=== PATIENT | female | born 1945 | race Caucasian/White ===

== ENCOUNTER 2017-05-12 07:27 | Inpatient (IN) | payer MEDICARE, OTHER ==
[2017-05-09 14:44] LABS: BLOOD UREA NITROGEN 14 mg/dL (7-18)
[2017-05-09 14:47] LABS: ASPARTATE AMINO TRANSFERASE 19 U/L (15-37)
[~2017-05-12] VITALS: Ht 162.6 cm; Wt 73.4 kg
[~2017-05-12 07:27] MED LIST: [UNRECOGNIZED DRUG - OTHER] PO
[2017-05-12 09:01] VITALS: BP 134/77
[2017-05-12] MEDS ORDERED: LACTATED RINGERS 1,000 ML IV SCH (09:31)
[2017-05-12] MEDS ORDERED: MIDAZOLAM 1 MG/ML, 2ML ONE (10:17)
[2017-05-12] MEDS ORDERED: FENTANYL PF 250 MCG/5ML ONE (10:17)
[2017-05-12] MEDS ORDERED: METOCLOPRAMIDE 5 MG/ML, 2ML IV PRN (11:30)
[2017-05-12] MEDS ORDERED: PROMETHAZINE 25 MG/ML, 1ML IV PRN (11:30)
[2017-05-12] MEDS ORDERED: HYDROmorphone 1 MG/ML, 1ML IV PRN (11:30)
[2017-05-12] MEDS ORDERED: OXYcodone 5 MG/5 ML ORAL.SOL UDC PO PRN (11:30)
[2017-05-12] MEDS ORDERED: ONDANSETRON 2MG/ML, 2ML IVPush PRN (11:30)
[2017-05-12] MEDS ORDERED: LABETALOL 5MG/ML, 20ML IV PRN (11:30)
[2017-05-12] MEDS ORDERED: MEPERIDINE/PF 25MG/0.5ML IVPush PRN (11:30)
[2017-05-12] MEDS ORDERED: hydrALAzine 20 MG/ML, 1ML IV PRN (11:30)
[2017-05-12] MEDS ORDERED: GLYCOPYRROLATE 0.2MG/1ML ONE (11:51)
[2017-05-12] MEDS ORDERED: ROCURONIUM 10 MG/ML ONE (11:51)
[2017-05-12] MEDS ORDERED: CEFOTETAN 2 GM ONE (11:51)
[2017-05-12] MEDS ORDERED: ONDANSETRON 2MG/ML, 2ML ONE (11:51)
[2017-05-12] MEDS ORDERED: PROPOFOL 10 MG/ML, 20ML ONE (11:51)
[2017-05-12] MEDS ORDERED: DEXAMETHASONE 4 MG/ML, 1ML ONE (11:51)
[2017-05-12] MEDS ORDERED: NEOSTIGMINE 1 MG/ML, 10ML ONE (11:51)
[2017-05-12] MEDS ORDERED: FENTANYL PF 100 MCG/2ML ONE (14:24)
[2017-05-12] MEDS ORDERED: ACETAMINOPHEN 650 MG/20.3 ML UDC ONE (14:24)
[2017-05-12] MEDS ORDERED: OXYcodone 5 MG/5 ML ORAL.SOL UDC ONE ×2 (14:25→21:26)
[2017-05-12] MEDS ORDERED: ACETAMINOPHEN 325 MG TABLET ONE (14:25)
[2017-05-12] MEDS: FENTANYL PF 100 MCG/2ML IV PRN ×2 (14:45→15:00)
[2017-05-12] MEDS ORDERED: morphine SULFATE 10 MG/ML, 1ML IV PRN (16:00)
[2017-05-12] MEDS ORDERED: ACETAMINOPHEN 650 MG SUPP PR PRN (16:00)
[2017-05-12] MEDS ORDERED: ONDANSETRON 2MG/ML, 2ML IV PRN (16:00)
[2017-05-12] MEDS ORDERED: ALBUMIN HUMAN 5% 500 ML IV SCH (16:00)
[2017-05-12] MEDS ORDERED: ACETAMINOPHEN 325 MG TABLET PO PRN (16:00)
[2017-05-12 16:10] VITALS: BP 122/60
[2017-05-12] MEDS: ALBUMIN HUMAN 5% 500 ML IV SCH (17:20)
[2017-05-12 19:09] VITALS: BP 138/73
[2017-05-12] MEDS: POTASSIUM CHLORIDE 20 MEQ in D5%-0.45% NACL 1,000 ML IV SCH ×2 (19:38→23:56)
[2017-05-12] MEDS ORDERED: HYDROmorphone 1 MG/ML, 1ML ONE (21:26)
[2017-05-13 01:18] VITALS: BP 126/65
[2017-05-13] MEDS: ALBUMIN HUMAN 5% 500 ML IV SCH ×3 (04:00→23:58)
[2017-05-13 04:46] LABS: BLOOD UREA NITROGEN 10 mg/dL (7-18)
[2017-05-13] MEDS: POTASSIUM CHLORIDE 20 MEQ in D5%-0.45% NACL 1,000 ML IV SCH ×3 (05:05→23:59)
[2017-05-13 06:40] VITALS: BP 113/54
[2017-05-13 13:27] VITALS: BP 114/52
[2017-05-13 19:22] VITALS: BP 107/55
[2017-05-14 02:30] VITALS: BP 107/57
[2017-05-14 04:46] LABS: BLOOD UREA NITROGEN 3 mg/dL (7-18)
[2017-05-14 04:50] LABS: ASPARTATE AMINO TRANSFERASE 11 U/L (15-37)
[2017-05-14 06:54] VITALS: BP 120/58
[2017-05-14] MEDS: ALBUMIN HUMAN 5% 500 ML IV SCH (12:32)
[2017-05-14] MEDS: POTASSIUM CHLORIDE 20 MEQ in D5%-0.45% NACL 1,000 ML IV SCH ×2 (12:32→22:52)
[2017-05-14 13:27] VITALS: BP 123/65
[2017-05-14 19:46] VITALS: BP 125/64
[2017-05-15 01:41] VITALS: BP 124/62
[2017-05-15 06:35] VITALS: BP 130/68
[2017-05-15] MEDS: FAMOTIDINE 20 MG TABLET PO SCH (10:09)
[2017-05-15] MEDS: POTASSIUM CHLORIDE 20 MEQ in D5%-0.45% NACL 1,000 ML IV SCH ×2 (10:30→22:29)
[2017-05-15 13:21] VITALS: BP 127/71
[2017-05-15 18:35] VITALS: BP 145/69
[2017-05-16 01:00] VITALS: BP 146/73
[2017-05-16 04:59] LABS: BLOOD UREA NITROGEN 2 mg/dL (7-18)
[2017-05-16 05:02] LABS: ASPARTATE AMINO TRANSFERASE 9 U/L (15-37)
[2017-05-16 07:39] VITALS: BP 146/76
[2017-05-16] MEDS ORDERED: POTASSIUM CHLORIDE 20 MEQ TAB.ER.PRT PO ONE (08:30)
[2017-05-16] MEDS: FAMOTIDINE 20 MG TABLET PO SCH (10:10)
[2017-05-16] MEDS: ENOXAPARIN 40 MG/0.4 ML SQ SCH (10:14)
[2017-05-16] MEDS: POTASSIUM CHLORIDE 20 MEQ in D5%-0.45% NACL 1,000 ML IV SCH (11:29)
[2017-05-16 13:15] VITALS: BP 106/66
[2017-05-16 18:27] VITALS: BP 128/63
[2017-05-17 03:31] VITALS: BP 121/75
[2017-05-17 05:30] LABS: BLOOD UREA NITROGEN 5 mg/dL (7-18)
[2017-05-17 08:20] VITALS: BP 109/68
[2017-05-17] MEDS: ENOXAPARIN 40 MG/0.4 ML SQ SCH (10:02)
[2017-05-17] MEDS: FAMOTIDINE 20 MG TABLET PO SCH (10:02)
[2017-05-17 13:19] VITALS: BP 115/68
[2017-05-17 19:14] VITALS: BP 125/75
[2017-05-18 01:30] VITALS: BP 132/65
[2017-05-18 06:32] VITALS: BP 126/72
[2017-05-18] MEDS: FAMOTIDINE 20 MG TABLET PO SCH (09:35)
[2017-05-18] MEDS: ENOXAPARIN 40 MG/0.4 ML SQ SCH (09:35)
== END 2017-05-18 14:45 | disposition home health service (06) | DRG 737 ==
LOC: ORIP 07:27 → 3NW 15:22
PROVIDERS: ADMIT Specialist; ATTEND Specialist
PROC: 0UT70ZZ Resection of Bilateral Fallopian Tubes, Open Approach (ICD-10-PCS; 2017-05-12)
PROC: 0UT90ZZ Resection of Uterus, Open Approach (ICD-10-PCS; 2017-05-12)
PROC: 0UTC0ZZ Resection of Cervix, Open Approach (ICD-10-PCS; 2017-05-12)
PROC: 0DTJ0ZZ Resection of Appendix, Open Approach (ICD-10-PCS; 2017-05-12)
PROC: 0DBS0ZZ (ICD-10-PCS; 2017-05-12)
PROC: 0UT20ZZ Resection of Bilateral Ovaries, Open Approach (ICD-10-PCS; principal; 2017-05-12 12:00)
DX: C56.2 Malignant neoplasm of left ovary (principal); R18.8 Other ascites; K56.7 Ileus, unspecified; C79.11 Secondary malignant neoplasm of bladder; C79.82 Secondary malignant neoplasm of genital organs; C79.89 Secondary malignant neoplasm of other specified sites; C78.6 Secondary malignant neoplasm of retroperitoneum and peritoneum; C56.1 Malignant neoplasm of right ovary; R97.1 Elevated cancer antigen 125 [CA 125]
CPT/HCPCS: 36415; 71020; 74000; 80048; 80053; 82570; 83735; 85025; 85610; 85730; 86850; 86900; 86923; 88307; 88331; 93005; J1100; J1650; J2250; J2270; J2405; J2704; J2710; J3010; J3480; J3490; P9045; C1765; J7120; S0074

== ENCOUNTER 2018-12-02 13:30 | Inpatient (IN) | payer MEDICARE, OTHER ==
[~2018-12-02] VITALS: Ht 162.6 cm; Wt 53.0 kg
--- NOTE | 2018-12-02 14:11 | NUR ---
PT PRESENTS TO ED WITH SLURRED SPEECH STARTING AT 08:30 THIS AM. RESOLVED APPROXIMATELY 13:00. 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 LEFT EYE DROOP FROM PREVIOUS INJURY AND IS NORMAL FOR PT. NO PAIN REPORTED AT THIS TIME. CONNECTED TO ALL MONITORS. VSS. HX OF OVARIAN CA, NO CHMO, NO RADIATION TREATMENTS.
--- NOTE | 2018-12-02 14:15 | NUR ---
AWATING MD ASSESSMENT AT THIS TIME.
--- NOTE | 2018-12-02 14:39 | NUR ---
PT TOOK 2 ASPIRIN BANKING OFFICER, 325MG EACH.
[2018-12-02 15:22] LABS: INTERNATIONAL NORMALIZED RATIO 1.19 (0.93-1.1); PROTHROMBIN TIME 12.5 Seconds (9.6-11.5)
[2018-12-02 15:23] LABS: ALANINE AMINOTRANSFERASE 15 U/L (12-78); ALBUMIN 1.9 g/dL (3.4-5.0); ANION GAP 7 mmol/L (5-15); CALCIUM 8.2 mg/dL (8.5-10.1); CHLORIDE 105 mmol/L (98-107); CREATININE 0.78 mg/dL (0.55-1.02)
--- NOTE | 2018-12-02 15:26 | NUR ---
PT RESTING IN BED WITH FAMILY AT BEDSIDE. NON NEEDS AT THIS TIME. VSS. WILL CONTINUE TO MONITOR.
[2018-12-02 15:27] LABS: ALKALINE PHOSPHATASE 200 U/L (45-117); BILIRUBIN,TOTAL 0.3 mg/dL (0.2-1.0); TOTAL PROTEIN 8.8 g/dL (6.4-8.2); TROPONIN I < 0.015 ng/mL (0.000-0.045)
[2018-12-02] MEDS ORDERED: VITAMIN B1 (15:33)
[2018-12-02] MEDS ORDERED: ESSIAC TEA (15:33)
[2018-12-02] MEDS ORDERED: MULTI-MINERAL (15:33)
[2018-12-02] MEDS ORDERED: [UNRECOGNIZED DRUG - OTHER] (15:33)
[2018-12-02] MEDS ORDERED: [UNRECOGNIZED DRUG - OTHER] (15:33)
[2018-12-02] MEDS ORDERED: ADRENAL COMPLEX (15:33)
[2018-12-02 15:42] LABS: MEAN CORPUSCULAR HEMOGLOBIN 22.7 pg (27.0-34.8); MEAN CORPUSCULAR HGB CONC 32.4 g/dL (32.4-35.8); MEAN CORPUSCULAR VOLUME 69.8 fL (80-100); RED BLOOD COUNT 3.29 x10^6/uL (3.82-5.3); RED CELL DISTRIBUTION WIDTH 17.9 % (9.6-15.2)
[2018-12-02 15:47] LABS: MEAN PLATELET VOLUME 11.4 fL (7.4-10.4)
[2018-12-02 15:57] LABS: MD YES; PLATELET COUNT 48 x10^3/uL (130-400)
[2018-12-02 16:01] LABS: ANISOCYTOSIS 3+; BASOS#(MANUAL) 0.09 x10^3/uL (0-0.1); BASOS% (MANUAL) 1 % (0-1); LYMPH#(MANUAL) 1.45 x10^3/uL (1-3.4); LYMPHS% (MANUAL) 17 % (22-44); MICROCYTOSIS 3+; MONOS#(MANUAL) 0.51 x10^3/uL (0.3-2.7); MONOS% (MANUAL) 6 % (2-9); SEG#(MANUAL) 6.46 x10^3/uL (1.8-6.8); SEGS% (MANUAL) 76 % (42-75)
[2018-12-02 16:02] LABS: HYPOCHROMIA 1+; POLYCHROMASIA 1+
[2018-12-02 16:03] LABS: <PLATELET ESTIMATE> DECREASED; LARGE PLATELETS 1+
[2018-12-02] MEDS ORDERED: AZITHROMYCIN 500 MG in SODIUM CHLORIDE 0.9% 250 ML IVPB ONE (16:30)
[2018-12-02] MEDS ORDERED: CEFTRIAXONE 1,000 MG in SODIUM CHLORIDE 0.9% 50 ML IVPB ONE (16:30)
[2018-12-02] MEDS ORDERED: CEFTRIAXONE PMX 1GM/50ML 50 ML ONE (16:38)
--- NOTE | 2018-12-02 16:45 | NUR ---
ROCEPHIN STARTED AFTER BLOOD CULTURES DRAWN X2.
--- NOTE | 2018-12-02 16:53 | NUR ---
PT PERFORMED SWALLOW EVAL WTIH NO COMPLICATIONS NOTED. NO COUGHING OR CHOKING.
--- NOTE | 2018-12-02 18:53 | NUR ---
PT RESTING IN ROOM. HOSPITALIST AT BEDSIDE TO UPDATE POC. VSS.
[2018-12-02] MEDS ORDERED: ONDANSETRON 4 MG TABLET PO PRN (19:30)
[2018-12-02] MEDS ORDERED: LIDODERM 5% PATCH TD PRN (19:30)
[2018-12-02] MEDS ORDERED: ACETAMINOPHEN 325 MG TABLET PO PRN (19:30)
[2018-12-02] MEDS ORDERED: DOCUSATE 100 MG CAPSULE PO PRN (19:30)
[2018-12-02 20:29] VITALS: BP 126/65
[2018-12-02 23:27] VITALS: BP 126/65
[2018-12-03 03:21] VITALS: BP 133/61
[2018-12-03] MEDS: CEFTRIAXONE PMX 1GM/50ML 50 ML IV SCH ×2 (05:16→16:56)
[2018-12-03 06:06] LABS: CHOL/HDL RATIO 6.6; LDL/HDL RATIO 4.9 (0.5-3.0)
[2018-12-03 07:51] VITALS: BP 108/57
[2018-12-03] MEDS ORDERED: ASPIRIN 81 MG TABLET CHEW PO/NG SCH (09:00)
[2018-12-03 09:20] LABS: ALANINE AMINOTRANSFERASE 11 U/L (12-78); ALBUMIN 1.8 g/dL (3.4-5.0); ANION GAP 8 mmol/L (5-15); CALCIUM 8.1 mg/dL (8.5-10.1); CHLORIDE 106 mmol/L (98-107)
[2018-12-03 09:22] LABS: ALKALINE PHOSPHATASE 166 U/L (45-117); BILIRUBIN,TOTAL 0.3 mg/dL (0.2-1.0); CREATININE 0.74 mg/dL (0.55-1.02); TOTAL PROTEIN 8.3 g/dL (6.4-8.2)
[2018-12-03 09:44] LABS: BASOPHILS # (AUTO) 0.03 x10^3/uL (0-0.1); BASOPHILS % (AUTO) 0 % (0-1); EOSINOPHILS # (AUTO) 0.19 x10^3/uL (0-0.4); EOSINOPHILS % (AUTO) 2 % (1-7); LYMPHOCYTES # (AUTO) 1.35 x10^3/uL (1-3.4); LYMPHOCYTES % (AUTO) 14 % (22-44); MD SCAN; MEAN CORPUSCULAR HGB CONC 32.7 g/dL (32.4-35.8); MEAN CORPUSCULAR VOLUME 70.4 fL (80-100); MEAN PLATELET VOLUME 13.1 fL (7.4-10.4); MONOCYTES # (AUTO) 0.85 x10^3/uL (0.2-0.8); MONOCYTES % (AUTO) 9 % (2-9); NEUTROPHILS # (AUTO) 6.95 x10^3/uL (1.8-6.8); NEUTROPHILS % (AUTO) 74 % (42-75); PLATELET COUNT 55 x10^3/uL (130-400); RED CELL DISTRIBUTION WIDTH 18.5 % (9.6-15.2)
[2018-12-03 09:47] LABS: HEMOGRAM NOTE RECHECKED
[2018-12-03] MEDS ORDERED: GADOBUTROL 7.5 MMOL/7.5 ML PFS ONE (11:01)
[2018-12-03 13:49] VITALS: BP 110/49
[2018-12-03] MEDS: GUAIFENESIN 200 MG TABLET PO SCH ×2 (17:27→20:01)
[2018-12-03] MEDS ORDERED: AZITHROMYCIN 500 MG in SODIUM CHLORIDE 0.9% 250 ML IV SCH (19:30)
[2018-12-03] MEDS: DOXYCYCLINE 100MG TABLET PO SCH (20:01)
[2018-12-03 21:58] VITALS: BP 112/64
[2018-12-04 00:33] VITALS: BP 108/60
[2018-12-04 04:44] VITALS: BP 103/61
[2018-12-04] MEDS: CEFTRIAXONE PMX 1GM/50ML 50 ML IV SCH ×2 (05:26→16:53)
[2018-12-04] MEDS: GUAIFENESIN 200 MG TABLET PO SCH ×4 (05:30→21:50)
[2018-12-04 05:48] LABS: ALBUMIN 1.8 g/dL (3.4-5.0); CALCIUM 8.8 mg/dL (8.5-10.1); CHLORIDE 106 mmol/L (98-107)
[2018-12-04 05:50] LABS: MEAN CORPUSCULAR HGB CONC 32.9 g/dL (32.4-35.8); MEAN PLATELET VOLUME 11.7 fL (7.4-10.4); PLATELET COUNT 63 x10^3/uL (130-400); RED BLOOD COUNT 2.84 x10^6/uL (3.82-5.3); RED CELL DISTRIBUTION WIDTH 18.3 % (9.6-15.2)
[2018-12-04 05:51] LABS: ANION GAP 9 mmol/L (5-15); CREATININE 0.66 mg/dL (0.55-1.02)
[2018-12-04 06:12] LABS: BASOPHILS # (AUTO) 0.04 x10^3/uL (0-0.1); BASOPHILS % (AUTO) 1 % (0-1); EOSINOPHILS # (AUTO) 0.07 x10^3/uL (0-0.4); EOSINOPHILS % (AUTO) 1 % (1-7); LYMPHOCYTES # (AUTO) 1.77 x10^3/uL (1-3.4); LYMPHOCYTES % (AUTO) 19 % (22-44); MD SCAN; MONOCYTES # (AUTO) 0.74 x10^3/uL (0.2-0.8); MONOCYTES % (AUTO) 8 % (2-9); NEUTROPHILS % (AUTO) 71 % (42-75)
[2018-12-04 07:08] VITALS: BP 135/55
[2018-12-04] MEDS: DOXYCYCLINE 100MG TABLET PO SCH ×2 (08:26→21:50)
[2018-12-04] MEDS ORDERED: IRON SUCROSE COMPLEX 100MG/5ML IV SCH (08:30)
[2018-12-04 14:30] VITALS: BP 119/61
[2018-12-04] MEDS ORDERED: DOXY100T PO (17:20)
[2018-12-04] MEDS ORDERED: CEFD300C37 PO (17:20)
[2018-12-04] MEDS ORDERED: GUAI200T3 PO (17:20)
[2018-12-04] MEDS ORDERED: DIPHENHYDRAMINE 50 MG/ML, 1ML IVPush ONE (18:00)
[2018-12-04] MEDS ORDERED: ACETAMINOPHEN 325 MG TABLET PO ONE (18:00)
[2018-12-04 21:20] VITALS: BP 120/68
[2018-12-05] VITALS (10 sets, daily range): BP systolic 107–134; BP diastolic 51–81
[2018-12-05] MEDS: GUAIFENESIN 200 MG TABLET PO SCH ×2 (05:42→12:47)
[2018-12-05] MEDS: CEFTRIAXONE PMX 1GM/50ML 50 ML IV SCH (05:43)
[2018-12-05] MEDS ORDERED: DIPHENHYDRAMINE 50 MG/ML, 1ML ONE (08:45)
[2018-12-05] MEDS: DOXYCYCLINE 100MG TABLET PO SCH (08:46)
== END 2018-12-05 14:08 | disposition home or self-care (01) | DRG 64 ==
LOC: ED 16:12 → EDIP 17:43 → 4EST 19:25
PROVIDERS: ADMIT Hospitalist; ATTEND Hospitalist
PROC: 30233N1 Transfusion of Nonautologous Red Blood Cells into Peripheral Vein, Percutaneous Approach (ICD-10-PCS; principal; 2018-12-05)
DX: I63.9 Cerebral infarction, unspecified (principal); J15.9 Unspecified bacterial pneumonia; E43 Unspecified severe protein-calorie malnutrition; R18.8 Other ascites; R47.01 Aphasia; D32.9 Benign neoplasm of meninges, unspecified; D63.0 Anemia in neoplastic disease; D69.59 Other secondary thrombocytopenia; D63.8 Anemia in other chronic diseases classified elsewhere; K76.9 Liver disease, unspecified; D75.89 Other specified diseases of blood and blood-forming organs; G57.91 Unspecified mononeuropathy of right lower limb; Z51.5 Encounter for palliative care; Z66 Do not resuscitate; Z85.43 Personal history of malignant neoplasm of ovary; Z90.710 Acquired absence of both cervix and uterus; Z90.49 Acquired absence of other specified parts of digestive tract; Z68.20 Body mass index [BMI] 20.0-20.9, adult
CPT/HCPCS: 36415; 70450; 70553; 71045; 76700; 80048; 80053; 80061; 82040; 82607; 82728; 83540; 83550; 83735; 84100; 84484; 85025; 85610; 86850; 86860; 86870; 86880; 86900; 86901; 86905; 86906; 86922; 86923; 86970; 86978; 87040; 93005; 93306; 93880; 96365; 96367; 99285; A9585; G0378; J0456; J0696; J1756; 92523-GN; J1200; J7050; P9016